=== PATIENT | male | born 1995 | race Caucasian/White ===

== ENCOUNTER 2023-07-27 12:25 | Emergency (ER) | payer BC, SELFPAY ==
[2023-07-27 12:27] VITALS: BP 139/99
[2023-07-27 12:59] VITALS: BMI 42.5
--- NOTE | 2023-07-27 13:00 | ED.SKININJ ---
HPI-Injury
General
Chief Complaint: Skin Surface Trauma
Source: patient
Exam Limitations: none
Time Seen by Provider: 07/27/23 12:45
Nursing documentation reviewed up to this point in time: agreed with
Travel History
Have you had any contact with someone who has COVID-19?: No
Do you have any symptoms of coronavirus? Fever > 100 degrees, chills, cough, shortness of breath, sore throat, loss of taste or smell, muscle aches, or headache?: No
History of Present Illness-Injury
Initial Injury comments:
28-year-old male was working in his father's attic when he cut the left hand dorsal DIP joint on a metal box. Last Tdap was 7 years ago
Past History
Past History
ED Past Medical History: None
ED Past Surgical History: None
Social History
Tobacco: Non-smoker
Personal: Single
Employment: Employed
Review of Systems
Review of Systems
Allergies reviewed?: Yes
All Other Systems: ROS reviewed and negative except as documented in HPI and ROS
Skin: Reports other (Cut left middle finger)
Neurological: Denies numbness
Skin Exam
Laceration
Dorsal DIP joint left middle finger:
Length in cm: 0.5
Orientation: horizontal
Type of Laceration: simple
Any active bleeding?: no active bleeding
Distal skin color and temperature: normal-warm & good color
Normal distal neurovascular exam: Yes
Phy Exam
Physical Exam
Physical Exam:
PHYSICAL EXAMINATION:
General: no apparent distress, not acutely ill
Neuro: alert and oriented.
Psychiatric: well kept. interactive and cooperative
Musculoskeletal: Moves with ease
Skin: Warm, pink.
Course
Orders/Labs/Results
Orders:
Orders
07/27/23 12:57
Tetanus/Diphth/Acelpertussis [Adacel] 0.5 ml IM .ONCE ONE
07/27/23 13:54
Cephalexin Monohydrate [Keflex] 500 mg PO NOW STA
Vital Signs
Initial and Last Documented VS:
Initial Vital Signs
Temp Pulse Resp BP Pulse Ox
98.9 F 96 20 139/99 95
07/27/23 12:27 07/27/23 12:27 07/27/23 12:27 07/27/23 12:27 07/27/23 12:27
Last Documented Vital Signs
Temp Pulse Resp BP Pulse Ox
98.9 F 76 16 141/95 96
07/27/23 12:27 07/27/23 13:13 07/27/23 13:13 07/27/23 13:13 07/27/23 13:13
Procedures
Laceration Closure
Dorsal DIP joint left middle finger:
Status of Wound: clean
Size of Wound in cm: 0.5
Description of Wound Edges: sharp
Preparation: cleaned with saline
Anesthesia: 1% Lidocaine
Revision/Debridement: routine- no revision and other (extensor tendon not visualized but pt unable to extend at DIP joint)
Type of Closure: single layer closure
MDM/Problems Addressed
Differential Diagnosis Includes:
laceration, tendion injury
MDM/Problems Addressed:
28-year-old male was working in his father's attic when he cut the left hand dorsal DIP joint on a metal box. Last Tdap was 7 years ago
Unable to extend DIP joint, suspect extensor tendon injury
Wound sutured, ATB ointment, band aid and aluminum helmet splint to immobilize DIP joint in extension applied
Referred to orthopedics
Consulted Dr. Smith on-call orthopedics who said he will get in touch with Dr. Mckoy and have patient seen sooner rather than later
Then patient informs me that he lives in [facility] and will most likely see somebody there
He was given Dr. Mckoy and Dr. Smith's information if needed
Antibiotic started due to tendon involvement
*Critical Care Note
Total Time (30-74mins, 75-104mins- exclusive of procedures): Not Applicable
ED Attending Note
-
Portions of this chart may have been created with voice recognition software.� Occasional wrong word or��sound alike� substitutions may have occurred due to the inherent limitations of voice recognition software.
Discharge Plan
Departure
Patient Disposition: Home (Routine Discharge)
Date of Disposition: 07/27/23
Time of Disposition: 13:39
Patient with high blood pressure during this ER visit?: No
Condition: Good
Discharge Problem:
Laceration of left middle finger, Injury of tendon of finger
Instructions: Laceration Repair With Stitches (DC), Common Finger Injuries (DC)
Prescriptions:
New
cephalexin 500 mg capsule
500 mg PO QID 7 Days Qty: 28 0RF
Referrals:
Jasvir Mckoy MD [Active] - Next open appointment
NONE,* [Family Provider] -
Michael Mcguire MD [Active] - Next open appointment
Eric Smith MD [Active] - Next open appointment
Activity Restrictions/Additional Instructions:
As we discussed, keep the splint on until further instructed by the orthopedic doctor. Call Dr. Smith's office tomorrow to make next available appointment
I sent him a text to expect your call
Tylenol or ibuprofen as needed for pain.
Interventions
Interventions:
*Risk Screen - Suicide Last Done: 07/27/23 13:02
*General Assessment Last Done: 07/27/23 14:00
*Neglect/Abuse Screening Last Done: 07/27/23 13:02
ED- Fall Risk Assessment Last Done: 07/27/23 13:02
*ED COVID-19 Vaccine History Last Done: 07/27/23 13:02
*Nursing Disposition Last Done: 07/27/23 14:00
ED-Skin Assessment Last Done: 07/27/23 13:02
Discharge Date and Time
Discharge Date/Time: 07/27/23 14:00
Print Language: AMHARIC
--- NOTE | 2023-07-27 13:00 | EDRN ---
Pt cut L middle finger #3 on edge of a metal electric box in father's attic. Pt has small cut on distal area over distal joint dorsal aspect of finger.
[2023-07-27] MEDS: ADACEL 0.5 ML IM (13:08)
[2023-07-27 13:13] VITALS: BP 141/95
[2023-07-27] MEDS: KEFLEX 500 MG PO (13:58)
== END 2023-07-27 14:00 | disposition home or self-care (01) ==
LOC: EMR 12:25
PROVIDERS: EMERGENCY PHYSICIAN Emergency Medicine
DX: S66.303A Unspecified injury of extensor muscle, fascia and tendon of left middle finger at wrist and hand level, initial encounter (principal); S61.213A Laceration without foreign body of left middle finger without damage to nail, initial encounter; W26.9XXA Contact with unspecified sharp object(s), initial encounter; Z23 Encounter for immunization
CPT/HCPCS: 99284; 12001; 90471; 90715